=== PATIENT | male | born 1970 | race Caucasian/White ===

== ENCOUNTER → 2020-06-30 | Outpatient (CLI) | payer MEDICARE ==
[~2020-06-30] MED LIST: ACHD5005 PO; ALLP100T PO; OXYC-12 PO; SRTR100T PO
== END ==
LOC: LABNPT 07:09
PROVIDERS: ATTEND Internal Medicine
DX: Z11.52 Encounter for screening for COVID-19 (principal)

== ENCOUNTER 2020-09-30 11:43 | Outpatient (CLI) | payer MEDICARE | END 2020-10-04 08:26 | disposition home or self-care (01) | LOC: PREOP 11:43 | PROVIDERS: ATTEND Internal Medicine | DX: Z01.818 Encounter for other preprocedural examination (principal) ==

== ENCOUNTER 2020-10-08 09:30 | Day surgery (SDC) | payer MEDICARE ==
--- NOTE | 2020-09-30 18:21 | HISTORY AND PHYSICAL ---
DATE OF SERVICE: COLONOSCOPY HISTORY AND PHYSICAL HISTORY OF PRESENT ILLNESS: Mr. Jauregui is a 50-year-old white male seen in the office for evaluation of intermittent gout and erectile dysfunction. The patient reports that he has been off of allopurinol for about a year and has had no gouty attacks. He has lost 3.6 pounds compared to his last office visit. Occasionally, will drink beer, but not on a regular basis and has tried to cut back on red meat and carbohydrates. He said getting some regular physical activity with his as well. He wanted to try Viagra in place of Cialis for cost reasons not because of lack of effectiveness. He voiced no other complaints today. He is not aware of any family history for colon cancer and has not accomplished screening colonoscopy. He reports his has had colon polyps and has had several colonoscopies, so he does not have any anxieties about the procedure. PHYSICAL EXAMINATION: GENERAL: Reveals a white male who appeared to be in no acute distress. VITAL SIGNS: Weight 235.2 pounds. Initial blood pressure 120/90, repeated 120/84. CHEST: Clear. CARDIOVASCULAR: Regular rate and rhythm without murmur, S3 or S4. ABDOMEN: Soft, supple without mass, organomegaly or tenderness. EXTREMITIES: Reveal no cyanosis, clubbing or edema. SKIN: Evaluation revealed no suspicious nevi. ASSESSMENT AND PLAN: 1. Intermittent gout, no flare is off of allopurinol. We did send off a uric acid, a chemistry and lipid panel today. Discussed the importance of portion control and continued weight loss. 2. Erectile dysfunction, aggravated by weight. Overweight status discussed. We will switch to sildenafil 20 mg tabs 2 to 5, 1 to 4 hours prior to relations. Side effect issues were discussed. 3. Screening colonoscopy. Prep instructions were given and questions answered. Continue to avoid nonsteroidal and aspirin therapy. The procedure was scheduled on 10/08/2020. Job ID: [id number] DocumentID: [id number] Dictated Date: 09/30/2020 18:05:47 Sap Basis Date: 09/30/2020 18:20:24 Dictated By: MARTI GONZALEZ MD [facility] HOSPITALNathanael
[2020-10-08] VITALS (11 sets, daily range): BP systolic 106–176; BP diastolic 58–97
[~2020-10-08] VITALS: Ht 182.9 cm; Wt 90.8 kg
[~2020-10-08 09:30] MED LIST changes: +D5 LR IV SOLUTION 1,000 ML IV ONE
[2020-10-08] MEDS ORDERED: D5 LR IV SOLUTION 1,000 ML IV STA (09:51)
--- NOTE | 2020-10-08 09:57 | Pre-Op Note & Conscious Sedat ---
Pre-Operative Progress Note H&P Reviewed The H&P was reviewed, patient examined and no changes noted. Date H&P Reviewed: Oct 08, 2020 Time H&P Reviewed: 09:57 Conscious Sedation Pre-Proced ASA Score 2 For ASA 3 and 4: Consider anesthesia and medical clearance. Also, for patients with a history of failed moderate sedation consider anesthesia. Airway Lungs Heart ASA score ASA 1: a normal healthy patient ASA 2: a patient with a mild systemic disease (mid diabetes, controlled hypertension, obesity ASA 3: a patient with a severe systemic disease that limits activity (angina, COPD, prior Myocardial infarction) ASA 4: a patient with an incapacitating disease that is a constant threat to life (CHF, renal failure) ASA 5: a moribund patient not expected to survive 24 hrs. (ruptured aneurysm) ASA 6: a declared brain- patient whose organs are being harvested. For emergent operations, add the letter E after the classification Mallampati Classification Grade 3 Sedation Plan Analgesia, Amnesia, Plan communicated to team members, Discussed options with patient/fam, Discussed risks with patient/fam The patient is an appropriate candidate to undergo the planned procedure, sedation, and anesthesia. The patient immediately re-assessed prior to indication. MARTI GONZALEZ MD Oct 08, 2020 09:57
[2020-10-08] MEDS ORDERED: LIDOCAINE JELLY 2% 6 ML SYRINGE MM PRN (10:00)
[2020-10-08] MEDS ORDERED: fentaNYL INJ 100 MCG/2 ML AMP IVP ONE (10:00)
[2020-10-08] MEDS ORDERED: MIDAZOLAM 5 MG/5 ML (VERSED) VIAL IV ONE (10:00)
[2020-10-08] MEDS ORDERED: MIDAZOLAM 5 MG/5 ML (VERSED) VIAL ONE (10:04)
[2020-10-08] MEDS ORDERED: LIDOCAINE JELLY 2% 6 ML SYRINGE ONE (10:04)
[2020-10-08] MEDS ORDERED: fentaNYL INJ 100 MCG/2 ML AMP ONE ×2 (10:04→10:39)
--- NOTE | 2020-10-08 14:49 | OPERATIVE REPORT ---
DATE OF SERVICE: COLONOSCOPY SUMMARY INDICATION FOR THE PROCEDURE: Screening. DESCRIPTION OF PROCEDURE: The patient was placed in the left lateral decubitus position. Prior to undergoing colonoscopy, digital rectal evaluation was performed. Anal sphincter tone was normal and the perianal reflexes intact. No abnormalities were noted on digital inspection of anal canal or distal rectal vault. Prostate was unremarkable, normal in size and anodular on digital inspection. The colonoscope was then inserted into the rectum and under direct visualization advanced to cecum. The cecum was identified by identification of the ileocecal valve and cecal strap. Quality of prep was fair. The patient tolerated the procedure well. FINDINGS: There was no evidence for internal or external hemorrhoids. The rectum, sigmoid colon, descending colon, splenic flexure, transverse colon, hepatic flexure, ascending colon and cecum were unremarkable. ASSESSMENT: Normal colonoscopy to cecum including digital evaluation of the prostate. No family history of colon cancer noted. Consideration for repeat screening in 10 years. Job ID: [id number] DocumentID: [id number] Dictated Date: 10/08/2020 11:24:48 Dehydrator Operator Date: 10/08/2020 14:48:34 Dictated By: MARTI GONZALEZ MD
== END 2020-10-08 11:35 | disposition home or self-care (01) ==
LOC: ENDO 09:30
PROVIDERS: ATTEND Internal Medicine
DX: Z12.11 Encounter for screening for malignant neoplasm of colon (principal); M10.9 Gout, unspecified; N52.9 Male erectile dysfunction, unspecified; Z79.899 Other long term (current) drug therapy

== ENCOUNTER 2021-06-07 11:33 | Outpatient (CLI) | payer MEDICARE ==
[~2021-06-07] VITALS: Ht 182.9 cm; Wt 104.3 kg
[~2021-06-07 11:33] MED LIST changes: -D5 LR IV SOLUTION 1,000 ML IV ONE
[2021-06-07] MEDS ORDERED: ACETAMINOPHEN 500 MG TAB (TYLENOL) PO PRN (11:45)
[2021-06-07] MEDS ORDERED: BAMLANIVIMAB 700 MG/ETESEVIMAB 1,400 MG IN NS IV ONE ×3 (11:45)
[2021-06-07] MEDS ORDERED: diphenhydrAMINE 50 MG/ML INJ (BENADRYL) IV PRN (11:45)
[2021-06-07] MEDS ORDERED: ONDANSETRON 4 MG/2 ML (SDV) Z0FRAN IV PRN (11:45)
[2021-06-07] MEDS ORDERED: EPINEPHrine INJECTION 1 MG/ML AMP IM PRN (11:45)
[2021-06-07 12:48] VITALS: BP 123/73
== END 2021-06-07 13:30 | disposition home or self-care (01) ==
LOC: INFUSION 11:33
PROVIDERS: ATTEND Nurse Practitioner Family
DX: U07.1 COVID-19 (principal)

== ENCOUNTER → 2022-07-18 | Outpatient (CLI) | payer MEDICARE | LOC: CARD 10:15 | PROVIDERS: ATTEND Nurse Practitioner Family | DX: R68.84 Jaw pain (principal) | CPT/HCPCS: 93005 ==

== ENCOUNTER → 2022-07-31 | Outpatient (CLI) | payer MEDICARE | LOC: CARD 09:42 | PROVIDERS: ATTEND Nurse Practitioner Family | DX: I51.7 Cardiomegaly (principal) | CPT/HCPCS: 93306 ==

== ENCOUNTER 2023-04-19 05:30 | Outpatient (CLI) | payer MEDICARE ==
[~2023-04-19] VITALS: Ht 182.9 cm; Wt 108.4 kg
[2023-04-19] MEDS ORDERED: LISI10TA25 PO (08:27)
[2023-04-19] MEDS ORDERED: FEBU40TA PO (08:27)
[2023-04-20] MEDS ORDERED: ESCI-2 PO (10:41)
[2023-04-20] MEDS ORDERED: PANT40TA52 PO (10:41)
== END 2023-04-19 08:35 | disposition home or self-care (01) ==
LOC: PREOP 05:30
PROVIDERS: ATTEND Internal Medicine
DX: Z01.818 Encounter for other preprocedural examination (principal)

== ENCOUNTER 2023-04-20 09:00 | Day surgery (SDC) | payer MEDICARE ==
--- NOTE | 2023-04-19 08:27 | HISTORY AND PHYSICAL ---
DATE OF SERVICE: 04/20/2023 EGD HISTORY AND PHYSICAL HISTORY OF PRESENT ILLNESS: The patient is a 53-year-old white male who reports increasing chest pain with odynophagia over the past 2 months. He has had some intermittent dysphagia with this. He initiated pantoprazole and discontinued Mounjaro, but there has been no improvement in his symptoms. He had been losing weight, but only while on Mounjaro. He has noted no melena or bright red blood per rectum. He has had no previous EGD evaluation. He has had over a 5-year history of reflux, that he had been taking pantoprazole for intermittently. PHYSICAL EXAMINATION: GENERAL: Reveals an anxious white male in mild distress. VITAL SIGNS: Blood pressure 130/78. CHEST: Clear CARDIOVASCULAR: Reveals regular rate and rhythm without murmur, S3 or S4. ABDOMEN: Reveals mild epigastric discomfort to palpation without rebound or guarding. No mass or organomegaly is noted. EXTREMITIES: No cyanosis, clubbing or edema. ASSESSMENT AND PLAN: The patient is being set up for diagnostic EGD with red flag symptoms of odynophagia and dysphagia with longstanding reflux symptoms and no past history of EGD evaluation, high risk for Cabrera's. He is being set up for this Sunday. Prep instructions were given and questions were answered. He was also advised to go back on escitalopram for his underlying generalized anxiety 10 mg daily. Job ID: [id number] DocumentID: [id number] Dictated Date: 04/18/2023 17:02:45 Auto Travel Counselor Date: 04/18/2023 17:39:00 Dictated By: MARTI GONZALEZ MD
[~2023-04-20] VITALS: Ht 182.9 cm; Wt 108.4 kg
[~2023-04-20 09:00] MED LIST changes: +FEBU40TA PO; +LISI10TA25 PO
[2023-04-20] MEDS ORDERED: LACTATED RINGERS 1,000 ML 1,000 ML IV STA (09:01)
--- NOTE | 2023-04-20 09:08 | Pre-Op Note & Conscious Sedat ---
Pre-Operative Progress Note Date H&P Reviewed: Apr 20, 2023 Time H&P Reviewed: 09:08 History & Physical: H&P Reviewed, Patient Examed, No changes noted Pre-Op Diagnosis: GERD dysphagia Moderate Sedation PreProcedure ASA Score 2 Airway Lungs Heart ASA score ASA 1: a normal healthy patient ASA 2: a patient with a mild systemic disease (mid diabetes, controlled hypertension, obesity ASA 3: a patient with a severe systemic disease that limits activity (angina, COPD, prior Myocardial infarction) ASA 4: a patient with an incapacitating disease that is a constant threat to life (CHF, renal failure) ASA 5: a moribund patient not expected to survive 24 hrs. (ruptured aneurysm) ASA 6: a declared brain- patient whose organs are being harvested. For emergent operations, add the letter E after the classification Mallampati Classification Grade 2 Sedation Plan Analgesia, Amnesia, Plan communicated to team members, Discussed options with patient/fam, Discussed risks with patient/fam The patient is an appropriate candidate to undergo the planned procedure, sedation, and anesthesia. The patient immediately re-assessed prior to indication. MARTI GONZALEZ MD Apr 20, 2023 09:08
[2023-04-20] MEDS ORDERED: HURRICAINE EXT TUBE (BENZOCAINE) XX PRN (09:15)
[2023-04-20 09:26] VITALS: BP 126/83
[2023-04-20] MEDS ORDERED: MIDAZOLAM INJ 2 MG/2 ML VIAL ONE (09:44)
[2023-04-20 10:10] VITALS: BP 105/63
[2023-04-20 10:15] VITALS: BP 111/63
--- NOTE | 2023-04-20 10:18 | Anesthesia-General Post-Op ---
MAC Patient Condition Mental Status/LOC: Same as Preop Cardiovascular: Satisfactory Nausea/Vomiting: Absent Respiratory: Satisfactory Pain: Controlled Complications: Absent Post Op Complications Complications None Follow Up Care/Instructions Patient Instructions None needed. Anesthesiology Discharge Order Discharge Order Patient is doing well, no complaints, stable vital signs, no apparent adverse anesthesia problems. No complications reported per nursing. MEKA HOFFMAN CRNA Apr 20, 2023 10:18
--- NOTE | 2023-04-20 10:29 | Progress Note-Post Operative ---
Post-Procedure Note Physician (s)/Head Setter (s) Physician MARTI GONZALEZ MD Pre-Procedure Diagnosis Pre-Procedure Diagnosis: GERD dysphagia Post-Procedure Diagnosis Post-operative diagnosis: The patient was placed in the left lateral decubitus position. The endoscope was inserted into the oral cavity and under direct visualization the esophagus is intubated. The endoscope passed down the esophagus to stomach and second portion of the duodenum. A careful inspection was made as the endoscope was withdrawn. Findings: The posterior pharynx epiglottis arytenoid aperture and true and false vocal folds were unremarkable to gross inspection. Proximal and midesophagus were unremarkable. There was some fingerlike projections of columnar mucosa extending at most 2 cm from what appeared to be the Z-line suggesting underlying short segment Cabrera's. Four-quadrant biopsies were obtained after photography. No suspicious findings were noted under NBI visualization small approximate centimeter hiatal hernia is noted. The cardia and fundus of the stomach were unremarkable mild linear antral erythema was noted biopsies obtained and submitted for Helicobacter evaluation. The pylorus pyloric channel duodenal bulb and second portion of duodenum were unremarkable with normal villous appearing architecture. A/P 1. 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 Biopsies were obtained four-quadrant from the esophagus 1 from the antrum and also 1 from the midesophagus to evaluate for eosinophilic esophagitis. After obtaining histopathology results will evaluate for potential for future surveillance EGD. Patient is to continue proton pump inhibitor therapy and we discussed the importance of nonmedication reflux management as well. 2. Patient did exhibit an obstructive breathing pattern during anesthesia on his side. We will be setting the patient up for home sleep study to evaluate for underlying obstructive sleep apnea. MARTI GONZALEZ MD Apr 20, 2023 10:29
[2023-04-20] MEDS ORDERED: PANT40TA52 PO (10:41)
[2023-04-20] MEDS ORDERED: ESCI-2 PO (10:41)
[2023-04-20 10:45] VITALS: BP 111/63
== END 2023-04-20 10:45 | disposition home or self-care (01) ==
LOC: ENDO 09:00
PROVIDERS: ATTEND Internal Medicine
DX: K21.00 Gastro-esophageal reflux disease with esophagitis, without bleeding (principal); K44.9 Diaphragmatic hernia without obstruction or gangrene; K31.89 Other diseases of stomach and duodenum; E66.9 Obesity, unspecified